=== PATIENT | female | born 1980 | race Caucasian/White ===

== ENCOUNTER 2017-05-21 01:48 | Emergency (ER) | payer MEDICAID, OTHER ==
[~2017-05-21] VITALS: Ht 167.6 cm; Wt 68.0 kg
[2017-05-21 01:54] VITALS: Ht 167.6 cm; Wt 68.0 kg
[2017-05-21] MEDS ORDERED: LIDOCAINE 1% (MDV) 20 ML INJ SC ONE (03:00)
[2017-05-21] MEDS ORDERED: SULF1TAB31 PO (03:59)
[2017-05-21] MEDS ORDERED: CEPH-443 PO (03:59)
[2017-05-21] MEDS ORDERED: HYDR-906 PO (03:59)
--- NOTE | 2017-05-21 04:09 | ERA ---
ER Documentation Chief Complaint Date/Time DATE: 05/21/17 TIME: 04:02 Chief Complaint abscess on right middle finger,abscess on left inner thigh HPI Patient is presenting with a chief complaint of abscess on right third digit and 3 abscesses on inner left thigh. Denies intravenous drug use or similar symptoms in the past. Denies fever, chills, headache, sexual activity, chest pain, shortness of breath, nausea, vomiting, diarrhea, constipation. No other complaints. Describes no other associated manifestations. Nursing notes have been reviewed and are consistent with history given. ROS All systems reviewed and are negative except as per history of present illness. Medications Home Meds Active Scripts Hydrocodone/Acetaminophen (Edwards 5-325 Tablet) 1 Each Tablet, 1 TAB PO Q6H Y for PAIN, #7 TAB Prov:JUNIOR RICHEY PA-C 05/21/17 Sulfamethoxazole/Trimethoprim* (Bactrim Ds* Tablet) 1 Each Tablet, 1 TAB PO BID , #14 TAB Prov:JUNIOR RICHEY PA-C 05/21/17 Cephalexin* (Keflex*) 500 Mg Capsule, 500 MG PO QID for 5 Days, CAP Prov:JUNIOR RICHEY PA-C 05/21/17 Allergies Allergies: Coded Allergies: No Known Allergy (Unverified , 05/21/17) PMhx/Soc Medical and Surgical Hx: pt denies Medical Hx, pt denies Surgical Hx Hx Alcohol Use: No Hx Substance Use: No Hx Tobacco Use: No Physical Exam Vitals Vital Signs Date Time Temp Pulse Resp B/P Pulse Ox O2 Delivery O2 Flow Rate FiO2 05/21/17 01:54 97.4 94 20 122/71 100 Physical Exam Const: Healthy-appearing. Well-nourished. Well-developed. No acute distress. Skin: 4 mm abscess on the posterior radial side of the PIP joint of the right third digit. Slight erythema surrounding. No discharge noted. 3 5 mm abscesses noted on the inner left thigh with erythema surrounding 10-20 cm. Mild fluctuance. Ext: No edema or palpable cord. Normal movement of all extremities grossly observed. Neur: Awake, alert and oriented x3. Neurovascularly intact bilaterally. Oral: No oral edema visualized. Mucous membranes moist and pink. Head: Normocephalic, Atraumatic. Eyes: Non-injected; No discharge. EOMI and MARY bilaterally. Ears: Normal External Ears, EACs clear, TM normal bilaterally without erythema. Nose: Normal external nose; no discharge, or sinus tenderness. Neck: No cervical lymphadenopathy, masses or goiter palpated. ~ No meningismus. Pulm: Good air movement in upper and lower respiratory tracts. No dyspnea, stridor, tripoding or drooling. Clear to auscultation bilaterally. Cardio: Regular rate and rhythm; No murmurs, gallops or rubs auscultated. No JVD grossly observed. No cyanosis. Capillary refill less than 2 seconds. Abd: Soft, non tender, non distended. No guarding, masses. Normal bowel sounds. MS: Normal motor strength, normal tone with gross examination. Back: No midline, flank or CVA tenderness. Psych: Normal Mood and Affect. Results 24 hrs Current Medications Medications (Trade) Dose Ordered Sig/Hesham Route PRN Reason Start Time Stop Time Status Last Admin Dose Admin Lidocaine (Xylocaine 1% (Mdv) 20 ml) 20 ml ONCE ONCE SC 05/21/17 03:00 05/21/17 03:01 DC Procedures/MDM 36-year-old female presenting with signs and symptoms consistent with abscesses. Patient states that they have developed over 3 days. Denies any symptoms or signs of systemic infection. Incision and drainage was performed on the 3 abscesses of the left inner thigh. 3-5 mL of purulent material was expressed from the middle of the 3 abscesses. The superior and inferior abscess expressed approximately 1-2 mL of purulent material each. Patient was neurovascularly intact bilaterally before and after the exam. A total of 50 mL of lidocaine was used. My attending Dr. Guthrie has evaluated the patient alongside his me as well and has agreed with my assessment and plan. Most likely diagnosis, multiple cutaneous abscesses. At this time I have little suspicion for osteomyelitis, necrotizing fasciitis gas gangrene, bacteremia or other systemic involvement. I have spoke with the patient regarding their condition and future management. They have verbally responded that they understand their status and treatment plan. The patients vitals are stable, and their current condition is appropriate for discharge. The patient will be given discharge instructions with return precautions. Discharge medications: Edwards 5/325 mg p.o. 7 tabs Bactrim 7 days Keflex 7 days Departure Diagnosis: Primary Impression: Abscess Condition: Stable Patient Instructions: Abscess, Incision And Drainage Additional Instructions: Follow up with your PCP within the next 1-3 days for a more thorough evaluation and a possible referral to a specialist. Return the the emergency department immediately if symptoms worsen or change. If you have any questions regarding medications, ask your pharmacist or us before you leave. If any adverse reactions occur while taking your medications, discontinue the treatment and return to the emergency department immediately. Take your medications as directed, and complete the entire course of treatment. JUNIOR RICHEY PA-C May 21, 2017 04:09
== END 2017-05-21 04:14 | disposition home or self-care (01) ==
LOC: FTE 01:48
DX: L02.511 Cutaneous abscess of right hand (principal); L02.416 Cutaneous abscess of left lower limb

== ENCOUNTER 2018-06-05 20:37 | Emergency (ER) | END 2018-06-06 00:30 | disposition home or self-care (01) ==

== ENCOUNTER 2019-01-05 19:30 | Emergency (ER) | payer SELFPAY ==
[~2019-01-05] VITALS: Wt 65.8 kg
[~2019-01-05 19:30] MED LIST: CEPH-443 PO; HYDR-4011 PO; NAPR-688 PO; SULF1TAB31 PO
[2019-01-05 19:53] VITALS: BP 147/67; PULSE 116; RESP 18
== END 2019-01-05 22:59 | disposition left against medical advice (07) ==
LOC: FTE 19:30
DX: Z53.21 Procedure and treatment not carried out due to patient leaving prior to being seen by health care provider (principal)